=== PATIENT | female | born 1955 | race Caucasian/White ===

== ENCOUNTER 2016-05-27 09:00 | Day surgery (SDC) | payer BC ==
[2016-05-26 16:45] LABS: HEMATOCRIT 43.6 % (36.0-48.0); HEMOGLOBIN 14.6 g/dL (12-16); MCH 31.6 pg (26.0-34.0); MCHC 33.5 g/dL (31.0-37.0); MCV 94.4 fL (80.0-100.0); MEAN PLATELET VOLUME 9.4 fL (7.4-10.4); RBC 4.62 10x6/uL (4.00-5.40); RDW 14.3 % (11.5-14.5); WBC 4.1 10x3/uL (4.8-10.8)
[~2016-05-27] VITALS: Ht 165.1 cm; Wt 99.8 kg
[~2016-05-27 09:00] MED LIST: ELIQUIS2.5 MG PO; OXYCODONE HCL5 MG PO
[2016-05-27 09:20] VITALS: BP 128/74; Ht 165.1 cm; Wt 99.8 kg
[2016-05-27] MEDS ORDERED: HYDROCODONE-APA1 TAB PO (11:16)
--- NOTE | 2016-05-27 12:31 | NUR ---
1200-RECD FROM PACU. ALERT. RESP WITH EASE. O2 DECREASED TO 2L PER NC. STATES PAIN IS DOWN FROM 8 TO 6, IV PATENT. FAMILY AT BEDSIDE. 1220-FULL LIQUIDS SERVED.
--- NOTE | 2016-05-27 12:41 | NUR ---
1241 STATES LEFT KNEE NOW NO PAIN TAKING IN FULL LIQUIDS.
--- NOTE | 2016-05-27 13:56 | NUR ---
1330 DISCUSSED RANGE OF MOTION WITH LEFT KNEE AND ENCORAGED SOON POSSIBLE. PATIENT STATED HAS NOT TALKED TO DR. FÉLIX GONZALEZ MD.
--- NOTE | 2016-05-27 13:57 | NUR ---
1340 UP WITH WALKER WITH ASSISTANCE TO THE BATHROOM AND VOIDED,STRESSED IMPORTANCE OF RANGE OF MOTION OFTEN.
--- NOTE | 2016-05-27 15:25 | NUR ---
1350 IV OUT AND DISCONTINUED WITH CATHETER INTACT. WENT OVER DISCHARGE INSTRUCTIONS AND VERBALLY UNDERSTANDS PATIENT TALKED WITH DR. HEARD AND QUESTIONS ANSWERED.1355 TO HOME VIA W/C WITH SPOUSE.
--- NOTE | 2016-06-14 12:19 | OP ---
PATIENT NAME: DORENE CERNA MEDICAL RECORD: [id number] :53 LOCATION:[facility] ADMISSION DATE: SURGEON: TRAMAINE HEARD MD DATE OF OPERATION: 05/27/2016 PREOPERATIVE DIAGNOSIS: Left knee ankylosis, stiffness, status post total knee arthroplasty. POSTOPERATIVE DIAGNOSIS: Left knee ankylosis, stiffness, status post total knee arthroplasty. PROCEDURE PERFORMED: Left knee manipulation under anesthesia. SURGEON: El Heard MD ANESTHESIA: TIVA with a block. CONDITION: She tolerated this well, was awakened and transferred to the recovery room in stable condition at termination of the procedure. INDICATIONS: This is a 60-year-old female that is 3+ months out from the total knee. She had a slow start with therapy, did not progress well, has only been able to get up to 90 degrees of motion. Having only got to this point, we elected to go ahead and try manipulation. We discussed with her risks, benefits, and alternatives including fracture ____ and inability to regain motion. She understood and wished to proceed. OPERATIVE REPORT: The patient was taken to the operating room and placed in supine position. TIVA anesthesia was obtained. Once she was adequately sedated, then I did gently manipulate her knee. Her initial flexion was around 90 degrees. I was able to easily get her 220+ degrees of flexion. This was with some popping and catching, but nothing to suggest anything significant. Once she was at this juncture, I then proceeded to end the case. She was awakened. She was transferred back to the recovery room in stable condition. We will have her started on motion RA. I have talked to her about this, talked to her about getting with her therapist RA and we will proceed from this juncture. TRANSINT:[id number] Voice Confirmation ID: [id number] DOCUMENT ID: [id number] TRAMAINE HEARD MD at 1219 CC: [id number] DICTATION DATE: 05/27/16 1136 SHEARER HELPER: 05/27/16 1348 [facility] 05/27/16 [place] [address]
== END 2016-05-27 14:00 | disposition home or self-care (01) ==
LOC: D.OPS 09:00 → D.PAN 11:00 → D.OPS 11:00
PROVIDERS: Anesthesiology
DX: T84.89XA Other specified complication of internal orthopedic prosthetic devices, implants and grafts, initial encounter (principal); M24.662 Ankylosis, left knee

== ENCOUNTER 2017-03-17 09:00 | Outpatient (CLI) | payer BC ==
[2016-05-27 09:20] VITALS: BMI 33.0
[~2017-03-17 09:00] MED LIST changes: +HYDROCODONE-APA1 TAB PO
== END 2017-03-17 23:59 | disposition home or self-care (01) ==
LOC: D.MAMMO 09:00
DX: Z12.31 Encounter for screening mammogram for malignant neoplasm of breast (principal); M81.0 Age-related osteoporosis without current pathological fracture

== ENCOUNTER → 2017-06-28 17:44 | Outpatient (CLI) | payer BC ==
[2016-05-27 09:20] VITALS: BMI 33.0
== END | disposition home or self-care (01) ==
LOC: D.MAMMO 04-24 14:00 → D.US 04-24 14:30 → D.MAMMO 06-02 10:30
DX: R92.8 Other abnormal and inconclusive findings on diagnostic imaging of breast (principal)